=== PATIENT | male | born 1985 ===

== ENCOUNTER 2018-09-07 10:25 | Emergency (ER) | payer BC ==
[2018-09-07 11:10] VITALS: BP 138/83
--- NOTE | 2018-09-07 12:00 | UC ---
Ear Complaint HPI - HPI Summary HPI Summary: 33-year-old male comes in with a chief complaint of decreased hearing in left ear fullness. Is been going on for about a week. He has been swimming. Denies pain. No upper respiratory tract infection symptoms no sore throat. - History of Current Complaint Chief Complaint: UCEar Stated Complaint: LT EAR BLOCKAGE Time Seen by Provider: 09/07/18 11:45 Pain Intensity: 2 - Allergies/Home Medications Allergies/Adverse Reactions: Allergies Allergy/AdvReac Type Severity Reaction Status Date / Time No Known Allergies Allergy Verified 09/07/18 11:10 Home Medications: Home Medications NK [No Home Medications Reported] 09/07/18 [History Confirmed 09/07/18] PMH/Surg Hx/FS Hx/Imm Hx Previously Healthy: Yes - Surgical History Surgical History: Yes Surgery Procedure, Year, and Place: eyelid reconstruction - Family History Known Family History: Positive: Non-Contributory - Social History Alcohol Use: Weekly Substance Use Type: None Smoking Status (MU): Never Smoked Tobacco Review of Systems All Other Systems Reviewed And Are Negative: Yes Constitutional: Positive: Negative Skin: Positive: Negative Eyes: Positive: Negative ENT: Positive: Other - see hpi Respiratory: Positive: Negative Cardiovascular: Positive: Negative Gastrointestinal: Positive: Negative Motor: Positive: Negative Neurovascular: Positive: Negative Musculoskeletal: Positive: Negative Neurological: Positive: Negative Psychological: Positive: Negative Is Patient Immunocompromised?: No Physical Exam Triage Information Reviewed: Yes Appearance: Well-Appearing, No Pain Distress, Well-Nourished Vital Signs: Initial Vital Signs Temp 98.7 F 09/07/18 11:05 Pulse 68 09/07/18 11:05 Resp 16 09/07/18 11:05 BP 138/83 09/07/18 11:05 Pulse Ox 100 09/07/18 11:05 Vital Signs Reviewed: Yes Eye Exam: Normal Eyes: Positive: Conjunctiva Clear ENT: Positive: Pharynx normal, Other - left cerumen impaction. Right has partial cerumen obstruction Neck: Positive: Supple Respiratory: Positive: No respiratory distress Musculoskeletal: Positive: Strength Intact, ROM Intact Neurological: Positive: Alert, Muscle Tone Normal Psychological: Positive: Normal Response To Family, Age Appropriate Behavior Skin Exam: Normal Ear Complaint Course/Dx - Course Course Of Treatment: Both ears irrigated by nursing and copious cerumen removed. Hearing improved. No ear pain no evidence of otitis externa therefore no antibiotics at this time. - Differential Dx/Diagnosis Provider Diagnosis: Impacted cerumen, bilateral Discharge - Sign-Out/Discharge Documenting (check all that apply): Patient Departure All imaging exams completed and their final reports reviewed: No Studies - Discharge Plan Condition: Stable Disposition: HOME Patient Education Materials: Cerumen Impaction (ED) Referrals: [facility] [place] [facility] [Outside] Additional Instructions: FOLLOW UP WITH YOUR DOCTOR IF NOT COMPLETELY IMPROVED. GET RECHECKED SOONER IF YOUR CONDITION WORSENS OR ANY QUESTIONS OR CONCERNS. - Billing Disposition and Condition Condition: STABLE Disposition: Home
== END 2018-09-07 12:20 | disposition home or self-care (01) ==
LOC: UCEAST 10:25
DX: H61.23 Impacted cerumen, bilateral (principal)
CPT/HCPCS: 99203; G0463